=== PATIENT | male | born 1980 | race Two or more races ===

== ENCOUNTER 2020-04-12 08:21 | Day surgery (SDC) | payer OTHER ==
[2020-04-10 15:22] VITALS: BMI 34.4
[~2020-04-12 08:21] MED LIST: LACTATED RINGERS 1,000 ML IV SCH; LIDOCAINE 1% (10MG/ML) FOR IV START INTRADERMA PRN
[2020-04-12 08:45] VITALS: TEMP 97
[2020-04-12] MEDS ORDERED: PROPOFOL 10 MG/ML 20 ML VIAL IV ONE (09:32)
--- NOTE | 2020-04-12 09:44 | P.PCN ---
Date of Procedure: 04/12/20 Procedure(s) Performed: BRIEF HISTORY: Patient is a 31-year-old, pleasant, male, scheduled for an upper endoscopy as part of the chest pain for the last 2 months duration. He had cardiac catheterization done and basically a month ago that was negative. He denies any heartburn. No dysphagia or odynophagia. PROCEDURE PERFORMED: Esophagogastroduodenoscopy with biopsy. PREOPERATIVE DIAGNOSIS: Atypical chest pain. IV sedation per anesthesia. PROCEDURE: After informed consent was obtained, the patient was brought into the endoscopy unit. IV sedation was administered by Anesthesia under continuous monitoring. Initially the Olympus GIF-140 video endoscope was inserted into the mouth. Esophagus intubated without any difficulty. It was gradually advanced into the stomach and duodenum and carefully examined. The bulb and the second part of the duodenum appeared normal. The scope at this time was withdrawn to the stomach, adequately insufflated with air, and upon careful examination, mucosa of the antrum, had mild gastritis and biopsies were done from this area. body, cardia and the fundus appeared normal. The scope was then withdrawn into the esophagus. The GE junction was located at 40 cm from the incisors. There were linear erosions noted in the distal esophagus consistent with LA grade B reflux esophagitis. The rest of the esophagus appeared normal and the patient tolerated the procedure well. IMPRESSION: 1. Linear erosions in the distal esophagus consistent with LA grade B reflux esophagitis. 2. Mild antral gastritis. RECOMMENDATIONS: The findings of this examination were discussed with the patient as well as his family. He was advised to follow with the biopsy resul ts. He will be given a trial of Prilosec 40 mg daily for 8 weeks for possible GERD and will be seen in office..
[2020-04-12 10:07] VITALS: BP 122/76; PULSE 70; RESP 18
== END 2020-04-12 10:20 | disposition home or self-care (01) ==
LOC: ORWHC2ENDO 08:21
PROVIDERS: ATTEND Internal Medicine Gastroenterology
DX: K29.50 Unspecified chronic gastritis without bleeding (principal); K21.0 Gastro-esophageal reflux disease with esophagitis; K22.10 Ulcer of esophagus without bleeding; Z03.818 Encounter for observation for suspected exposure to other biological agents ruled out; F17.210 Nicotine dependence, cigarettes, uncomplicated; K50.90 Crohn's disease, unspecified, without complications; Z98.890 Other specified postprocedural states
CPT/HCPCS: 88305; 87635; 43239; J2704

== ENCOUNTER 2022-06-19 02:48 | Observation (INO) | payer BC, OTHER ==
--- NOTE | 2022-06-19 02:54 | ED ---
Abdominal Pain HPI - General Stated Complaint: Gallbladder issues Time Seen by Provider: 06/19/22 02:50 - History of Present Illness Initial Comments: This is a 42-year-old male who presents to the emergency department as a transfer from [facility] for acute cholecystitis. He began to have chest pain and upper abdominal pain around 5 PM yesterday. He originally had an x-ray of the chest, abdomen, and pelvis. This revealed concern for ileus versus small bowel obstruction. He then had a computed tomography scan of the abdomen and pelvis revealing gallstones and pericholecystic edema suggesting acute cholecystitis. Ultrasound was recommended, however he did not have one done at [place]. He was noted to have a mildly elevated white blood cell count of 11.0. He was given 1 g of ceftriaxone and 500 mg of Flagyl at approximately 12:15 AM. His pain has been well controlled with morphine. Denies any fevers, chills, sore throat, cough, dyspnea, palpitations, nausea, vomiting, diarrhea, back pain, or headaches. MD Complaint: abdominal pain Location: RUQ, epigastric - Related Data Home Medications Medication Instructions Recorded Confirmed No Known Home Medications 04/10/20 04/12/20 Allergies Allergy/AdvReac Type Severity Reaction Status Date / Time No Known Allergies Allergy Verified 06/19/22 02:55 Review of Systems ROS Statement: Those systems with pertinent positive or pertinent negative responses have been documented in the HPI. ROS Other: All systems not noted in ROS Statement are negative. Past Medical History Additional Past Medical History / Comment(s): chest pain- recent heart cath neg, crohns disease, heartburn, History of Any Multi-Drug Resistant Organisms: MRSA Date of last positivie culture/infection: 2018-not sure what month MDRO Source:: left index finger Past Surgical History: Heart Catheterization, Orthopedic Surgery Additional Past Surgical History / Comment(s): heart cath February 2020-negative, rt knee arthroscopy x 2, rt shoulder rotator cuff, Past Anesthesia/Blood Transfusion Reactions: No Reported Reaction Past Psychological History: No Psychological Hx Reported Past Alcohol Use History: None Reported Additional Past Alcohol Use History / Comment(s): smokes 1 PPD for 15 yrs Past Drug Use History: None Reported - Past Family History Mother Family Medical History: No Reported History General Exam Limitations: no limitations General appearance: alert, in no apparent distress Head exam: Present: atraumatic, normocephalic, normal inspection Respiratory exam: Present: normal lung sounds bilaterally. Absent: respiratory distress, wheezes, rales, rhonchi, stridor Cardiovascular Exam: Present: regular rate, normal rhythm, normal heart sounds. Absent: systolic murmur, diastolic murmur, rubs, gallop, clicks GI/Abdominal exam: Present: soft, tenderness (RUQ), normal bowel sounds. Absent: distended, guarding, rebound, rigid Neurological exam: Present: alert, oriented X3, CN II-XII intact Psychiatric exam: Present: normal affect, normal mood Skin exam: Present: warm, dry, intact, normal color. Absent: rash Course Vital Signs 06/19/22 02:49 Temperature 97.5 F L Pulse Rate 64 Respiratory 18 Rate Blood Pressure 117/76 O2 Sat by Pulse 94 L Oximetry Medical Decision Making - Medical Decision Making This is a 42-year-old male who presents to the emergency department for acute cholecystitis. Patient started on IV fluids. He'll be admitted to medicine with general surgery consult for cholecystectomy later today. Will start IV Zosyn around 6 AM and continue every 8 hours. This case was discussed in detail with the attending ED physician. Presentation, findings, and treatment plan discussed in detail as well. - Radiology Data Radiology results: report reviewed, image reviewed Disposition Clinical Impression: Acute cholecystitis Disposition: ADMITTED IP TO THIS [facility] Referrals: Nonstaff,Physician [REFERRING] - 1-2 days
[2022-06-19] MEDS ORDERED: SODIUM CHLORIDE 0.9% 1,000 ML IV STA (03:10)
[2022-06-19] MEDS ORDERED: PIPERACILLIN-TAZOBACTAM 3.375 GM in SODIUM CHLORIDE 0.9% 100 ML IVPB ONE (04:15)
[2022-06-19] MEDS ORDERED: NALOXONE 0.4 MG/ML 1 ML VIAL IV PRN (04:27)
[2022-06-19] MEDS ORDERED: HYDROmorphone 1 MG/ML 1 ML SYRINGE IVP PRN (04:27)
[2022-06-19] MEDS ORDERED: ONDANSETRON 4 MG/2 ML VIAL IVP PRN (04:27)
[2022-06-19] MEDS ORDERED: ACETAMINOPHEN TAB 325 MG TAB PO PRN (04:27)
[2022-06-19] MEDS: SODIUM CHLORIDE 0.9% 1,000 ML IV SCH ×3 (06:26→19:52)
[2022-06-19] MEDS: PIPERACILLIN-TAZOBACTAM 3.375 GM in SODIUM CHLORIDE 0.9% 100 ML IVPB SCH ×3 (08:27→23:05)
[2022-06-19] MEDS: HYDROmorphone 0.5 MG/0.5 ML SYRINGE IVP PRN ×2 (08:28→18:36)
[2022-06-19] MEDS: PANTOPRAZOLE 40 MG/10 ML VIAL IVP SCH ×2 (08:56→19:47)
[2022-06-19] MEDS ORDERED: INDOCYANINE GREEN 25 MG VIAL IV STA (09:47)
--- NOTE | 2022-06-19 09:47 | P.GSCN ---
History of Present Illness Consult date: 06/19/22 History of present illness: REASON FOR CONSULTATION: Acute cholecystitis HISTORY OF PRESENT ILLNESS: The patient is a 42 year old male who was transferred from outside institution with right upper quadrant abdominal pain less than 24 hrs ago. His abdominal pain started after eating chicken taco yesterday. He has Crohn's disease and is noncompliant with medical treatment. He reports past history of bowel obstructions. Patient reports his Crohn's medications caused worsening symptoms. He reports reflux disease with pizza and tomato-based foods. He takes Pepcid as needed. His mother is at bedside also confirms strong family history of gallbladder disease. He had CT of the abdomen and pelvis done at outside institution demonstrating features of acute cho lecystitis. Patient was transferred to this institution for cholecystectomy. Since admission his pain improved from last night. PAST MEDICAL HISTORY: See list and reviewed PAST SURGICAL HISTORY: See list and reviewed MEDICATIONS: See list and reviewed ALLERGIES: See list and reviewed SOCIAL HISTORY: See list and reviewed FAMILY HISTORY: See list and reviewed REVIEW OF ORGAN SYSTEMS: CONSTITUTIONAL: No fevers or chills. No recent weight loss. Has obesity, BMI 34.1. EYES: Denies any trouble with vision. No glasses. HEENT: No difficulties with hearing. No nosebleeds. No difficulty swallowing. RESPIRATORY: Denies pneumonia. Denies any troubles with breathing or dyspnea on exertion. CARDIOVASCULAR: History of cardiac catheterization negative. GASTROINTESTINAL: Has gastroesophageal reflux disease and Crohn's disease GENITOURINARY: Denies any blood in urine or increased urinary frequency. NEUROLOGICAL: Denies any numbness or tingling along the distal extremities. No seizure disorders or headaches. MUSCULOSKELETAL: Has back pain, stiffness or joint arthritis. SKIN: No current skin cancer. No rash. Has MRSA. PSYCHIATRIC: Denies current depression or suicidal thoughts. ENDOCRINE: Denies current thyroid disorders. Denies any blood sugar glucose intolerance. HEME/LYMPHATIC: Denies any lumps and bumps around the neck. No recent deep venous thrombosis. History of MRSA. ALLERGY/IMMUNOLOGY: No immunoglobulin therapy. No immune deficiencies. BREAST: Denies current breast lumps, pain or nipple discharge. PHYSICAL EXAM: VITALS: Reviewed CONSTITUTIONAL: Well developed and in no acute distress. EYES: Conjuctivae without sclera icterus. Extraocular movements grossly intact. HEAD, EARS, NOSE, THROAT: Moist buccal mucosa. Head is atraumatic, normocephalic. Hears conversational speech. No nasal drainage. NECK: Supple. No JV distention. No thyroidomegaly. RESPIRATORY: Non-labored respirations and equal bilateral excursions. No gross wheezes. CARDIOVASCULAR: Palpable 2+ radial pulses. ABDOMEN: Tender right upper quadrant abdominal pain. No peritonitis. LYMPH: No neck lymphadenopathy. MUSCULOSKELETAL: No clubbing, cyanosis. SKIN: Warm and well perfused with good skin turgor. NEUROLOGIC: Cranial nerves II through XII grossly intact. No focal or lateralizing signs. PSYCH: Appropriate affect. Alert and oriented to person, place and time. Displays appropriate insight. CLINCAL LABS: Reviewed. WBC normal. LFTs normal. RECORDS: Upper endoscopy from 2019 reviewed demonstrating gastroesophageal reflux disease with erosive esophagitis ASSESSMENT: 1. Acute cholecystitis 2. Right upper quadrant abdominal pain 3. Crohn's disease, noncompliant 4. Gastroesophageal reflux disease 5. Obesity due to excess calories, BMI 34.1. PLAN: 1. Recommend robotic cholecystectomy described. 2. Repeat CBC and CMP 3. Patient is elevated risk due to obesity and Crohn's disease Thank you for this kind consultation. Past Medical History Additional Past Medical History / Comment(s): chest pain- recent heart cath neg, crohns disease, heartburn, History of Any Multi-Drug Resistant Organisms: MRSA Year Discovered:: 2018-not sure what month MDRO Source:: left index finger Past Surgical History: Heart Catheterization, Orthopedic Surgery Additional Past Surgical History / Comment(s): heart cath February 2020-negative, rt knee arthroscopy x 2, rt shoulder rotator cuff, Past Anesthesia/Blood Transfusion Reactions: No Reported Reaction Past Psychological History: No Psychological Hx Reported Smoking Status: Former smoker Past Alcohol Use History: None Reported Additional Past Alcohol Use History / Comment(s): smokes 1 PPD for 15 yrs Past Drug Use History: None Reported - Past Family History Mother Family Medical History: No Reported History Medications and Allergies Home Medications Medication Instructions Recorded Confirmed Type Acetaminophen Tab [Tylenol] 1,000 mg PO Q6HR PRN 06/19/22 06/19/22 History Ibuprofen [Motrin] 600 mg PO Q8HR PRN #30 tab 06/19/22 Rx Omeprazole [PriLOSEC] 40 mg PO DAILY #14 cap 06/19/22 Rx Simethicone [Gas-X] 125 mg PO AC-TID PRN #20 capsule 06/19/22 Rx Allergies Allergy/AdvReac Type Severity Reaction Status Date / Time No Known Allergies Allergy Verified 06/19/22 08:00 Surgical - Exam Vital Signs Temp Pulse Resp BP Pulse Ox 97.5 F L 64 18 117/76 94 L 06/19/22 02:49 06/19/22 02:49 06/19/22 02:49 06/19/22 02:49 06/19/22 02:49 Results - Labs 06/20/22 03:29 06/20/22 03:29
[2022-06-19] MEDS ORDERED: HEPARIN SODIUM,PORCINE/PF 5,000 UNIT/0.5 ML SYRINGE SQ PRN (09:49)
[2022-06-19 10:53] LABS: Basophils # (A) 0.1 k/uL (0-0.2); Basophils % (A) 1 %; Eosinophils # (A) 0.8 k/uL (0-0.7); Eosinophils % (A) 8 %; HCT 45.4 % (39.0-53.0); Lymphocytes # (A) 1.1 k/uL (1.0-4.8); Lymphocytes % (A) 12 %; MCH 29.8 pg (25.0-35.0); MCHC 32.9 g/dL (31.0-37.0); MCV 90.6 fL (80.0-100.0); Mean Platelet Volume 7.6; Monocytes # (A) 0.7 k/uL (0-1.0); Monocytes % (A) 7 %; Neutrophils # (A) 6.5 k/uL (1.3-7.7); Neutrophils % (A) 70 %; Platelet Count 299 k/uL (150-450); RBC 5.02 m/uL (4.30-5.90); RDW 12.3 % (11.5-15.5); WBC 9.3 k/uL (3.8-10.6)
[2022-06-19 11:00] LABS: Prothrombin Time 10.4 sec (9.0-12.0)
[2022-06-19 11:06] LABS: ALT 31 U/L (4-49); AST 22 U/L (17-59); African American GFR (CKD) >90 (>60 ml/min/1.73 sqM); Albumin 4.3 g/dL (3.5-5.0); Albumin/Globulin Ratio 1.6; Alkaline Phosphatase 97 U/L (38-126); Anion Gap 7 mmol/L; Blood Urea Nitrogen 12 mg/dL (9-20); Calcium 8.7 mg/dL (8.4-10.2); Carbon Dioxide 27 mmol/L (22-30); Chloride 104 mmol/L (98-107); Globulin 2.7 g/dL; Glucose 91 mg/dL (74-99); Non-African American GFR(CKD) >90 (>60 ml/min/1.73 sqM); Potassium 4.4 mmol/L (3.5-5.1); Sodium 138 mmol/L (137-145); Total Bilirubin 0.7 mg/dL (0.2-1.3)
--- NOTE | 2022-06-19 11:32 | P.HPIM ---
History of Present Illness H&P Date: 06/19/22 History of Presenting Illness: Patient is a very pleasant 42-year-old male with a past medical history of GERD and Crohn's disease. He presented to the emergency department as a transfer from [facility] secondary to findings of acute cholecystitis. Patient initially presented to the emergency department for reports of epigastric pain beginning around 5 PM yesterday. Patient underwent x-rays of chest, abdomen, and pelvis which were reported to be concerning for versus small bowel obstruction and a CT abdomen was completed. CT abdomen revealed gallstones and pericholecystic edema concerning for acute cholecystitis. Patient was given Rocephin 1 g along with 500 mg of Flagyl and transferred to our facility for evaluation by General surgery. Patient underwent full evaluation in the emergency department. CBC, coags, and CMP were unremarkable. Patient was started on IV antibiotics Zosyn and admitted under our services with consultation to general surgery. Patient was seen and fully evaluated at the bedside. Patient reports he has a deep aching pain to right upper and epigastric region of abdomen. Patient denies increased pain with palpation and denies experiencing any nausea, vomiting, hematemesis, constipation, diarrhea, melena, or hematochezia. Patient also denies any recent fevers, chills, diaphoresis, chest pain, palpitations, or shortness of breath. Patient does report a history of Crohn's disease but denies having any abdominal surgeries or complications. Review of systems: Pertinent positives and negatives as discussed in HPI, a complete review of systems was performed and all other systems are negative. Physical exam: Vital signs reviewed and stable. General: Nontoxic, no distress and appears stated age. Derm: Skin warm and dry, normal coloration for ethnicity. Head: Atraumatic, normocephalic and symmetric. Eyes: EOMs intact, no lid lag, and anicteric sclera Mouth: no lip lesions, mucus membranes moist Cardiovascular: regular rate and rhythm with normal S1S2, no murmur, positive posterior tibial pulses bilaterally, and cap refill < 2 seconds. Lungs: Respirations even, regular, and unlabored on room air. Lungs CTA bilaterally, no rhonchi, no rales, no wheezing, and no accessory muscle usage. Abdominal: soft, nontender to palpation, no guarding, no appreciable organomegaly Ext: ROM intact. No gross muscle atrophy, no edema, no contractures Neuro: Speech clear, face symmetrical and CN II-XII grossly intact with no noted focal neuro deficits Psych: Alert and oriented to person, place, time, and situation. Appropriate and pleasant affect. Assessment and Plan of Care: Acute cholecystitis Abdominal pain Ileus History of GERD History of Crohn's disease -Consult to Gen. surgery -NPO pending scheduled robotic cholecystectomy -Continuation of IV antibiotic Zosyn -Symptomatic care and pain management with Dilaudid as needed for pain and Zofran as needed for nausea or vomiting. -PPI: Protonix 40 mg IVP twice daily -Continued IV fluid hydration with 0.9% normal saline. The patient is admitted with an anticipated less than 2 midnight stay for evaluation of acute cholecystitis CODE STATUS: Full code DVT prophylaxis: Heparin Discussed with: Patient, patient's family at bedside, and RN Anticipated discharge date: Tomorrow morning Anticipated discharge place: Home A total of 43 minutes was spent on the care of this complex patient more than 50% of the time was spent in counseling and care coordination. Past Medical History Additional Past Medical History / Comment(s): chest pain- recent heart cath neg, crohns disease, heartburn, History of Any Multi-Drug Resistant Organisms: MRSA Date of last positivie culture/infection: 2018-not sure what month MDRO Source:: left index finger Past Surgical History: Heart Catheterization, Orthopedic Surgery Additional Past Surgical History / Comment(s): heart cath February 2020-negative, rt knee arthroscopy x 2, rt shoulder rotator cuff, Past Anesthesia/Blood Transfusion Reactions: No Reported Reaction Past Psychological History: No Psychological Hx Reported Smoking Status: Former smoker Past Alcohol Use History: None Reported Additional Past Alcohol Use History / Comment(s): smokes 1 PPD for 15 yrs Past Drug Use History: None Reported - Past Family History Mother Family Medical History: No Reported History Medications and Allergies Home Medications Medication Instructions Recorded Confirmed Type Acetaminophen Tab [Tylenol Tab] 1,000 mg PO Q6HR PRN 06/19/22 06/19/22 History Famotidine [Pepcid AC] 10 mg PO DAILY PRN 06/19/22 06/19/22 History Allergies Allergy/AdvReac Type Severity Reaction Status Date / Time No Known Allergies Allergy Verified 06/19/22 08:00 Physical Exam Vitals: Vital Signs Temp Pulse Pulse Resp BP BP Pulse Ox 06/19/22 07:00 97.6 F 64 18 128/74 96 06/19/22 05:28 97.5 F L 57 L 18 129/82 94 L 06/19/22 02:49 97.5 F L 64 18 117/76 94 L Intake and Output 06/18/22 06/19/22 06/19/22 22:59 06:59 14:59 Other: Weight 107.955 kg Results CBC & Chem 7: 06/19/22 10:25 06/19/22 10:25 Thrombosis Risk Factor Assmnt - Choose All That Apply Each Factor Represents 1 point: Age 41-60 years, Obesity (BMI >25) Thrombosis Risk Factor Assessment Total Risk Factor Score: 2 Thrombosis Risk Factor Assessment Level: Low Risk
[2022-06-19] MEDS ORDERED: LACTATED RINGERS 1,000 ML IV ONE ×2 (14:22→16:21)
[2022-06-19] MEDS ORDERED: HYDROmorphone (PF) 1 MG/ML ONE (15:30)
[2022-06-19] MEDS ORDERED: KETOROLAC 15 MG/ML 1 ML VIAL ONE (15:30)
[2022-06-19] MEDS ORDERED: ePHEDrine 50 MG/ML 1 ML VIAL ONE (15:30)
[2022-06-19] MEDS ORDERED: ROCURONIUM 10 MG/ML (5 ML VIAL) IV ONE (15:30)
[2022-06-19] MEDS ORDERED: INDOCYANINE GREEN 25 MG VIAL IV ONE (15:30)
[2022-06-19] MEDS ORDERED: NEOSTIGMINE 1 MG/ML 10 ML VIAL ONE (15:30)
[2022-06-19] MEDS ORDERED: MIDAZOLAM 2 MG/2 ML VIAL ONE (15:30)
[2022-06-19] MEDS ORDERED: GLYCOPYRROLATE 0.2 MG/ML 2 ML VIAL ONE (15:30)
[2022-06-19] MEDS ORDERED: SUCCINYLCHOLINE CHLORIDE 200 MG/10 ML VIAL IV ONE (15:30)
[2022-06-19] MEDS ORDERED: fentaNYL (PF) 50 MCG/ML 2 ML AMP ONE (15:30)
[2022-06-19] MEDS ORDERED: PROPOFOL 10 MG/ML 20 ML VIAL IV ONE (15:30)
[2022-06-19] MEDS ORDERED: LIDOCAINE 2% INJ 20 MG/ML (2 ML VIAL) ONE (15:30)
[2022-06-19] MEDS ORDERED: BUPIVACAIN-EPI 0.25%-1:200,000 30 ML VIAL SQ ONE ×2 (15:48)
[2022-06-19] MEDS ORDERED: ACETAMINOPHEN IV (For NPO) 1,000 MG in EMPTY BAG 1 BAG IVPB ONE (17:29)
[2022-06-19] MEDS ORDERED: METOCLOPRAMIDE 5 MG/ML 2 ML VIAL IVP PRN (17:29)
--- NOTE | 2022-06-19 17:37 | P.OP ---
Date of Procedure: 06/19/22 Description of Procedure: SURGEON: SCOTTIE GRIMALDO MD PREOPERATIVE DIAGNOSES: 1. Acute cholecystitis 2. Gastroesophageal reflux disease 3. Crohn's disease with history of bowel obstructions 4. Obesity due to excess calories, BMI 34.1 5. Family history gallbladder disease POSTOPERATIVE DIAGNOSES: 1. Acute cholecystitis 2. Obesity due to excess calories, BMI 34.1 3. Hepatomegaly fatty liver disease 4. Gastroesophageal reflux disease 5. Crohn's disease with history of bowel obstructions 6. Family history gallbladder disease OPERATION: 1. Robotic-assisted da Milena Xi laparoscopic lysis of adhesions over 50% of the case 2. Robotic-assisted da Milena Xi laparoscopic cholecystectomy, multiport with FIREFLY ESTIMATED BLOOD LOSS: 5 mL. SPECIMENS REMOVED: Gallbladder. COMPLICATIONS: None. OPERATIVE FINDINGS: 1. Acute on chronic cholecystitis with moderate pericholecystic adhesions 2. Indocyanine green drain confirms acute cholecystitis with lack of contrast in gallbladder 3. Hepatomegaly and fatty liver disease 4. Moderate to severe pericholecystic adhesions requiring lysis of adhesions over 50% of the case INDICATIONS: The patient is a 42 year-old male who presents as a transfer from outside institution for acute cholecystitis. Surgical intervention with cholecystectomy was described. Robotic assisted laparoscopic approach was described. Benefits and risks of the procedure including but not limited to bleeding, infection, injury to the biliary tree was reviewed. Informed consent was obtained. DESCRIPTION OF PROCEDURE: Patient was brought to the operating room, placed in supine position. After general induction, the abdomen had been prepped and draped in standard sterile fashion. The robotic da Milena XI system was primed. After a timeout protocol was performed, the patient had been prepped and draped in standard sterile fashion. The patient was injected with indocyanine green. A 5 mm 0 degrees laparoscopic trocar entry was performed along the left upper quadrant. The abdomen insufflated to 15 mmHg pressure which was tolerated well. Diagnostic laparoscopy demonstrated no injury to bowel viscera or mesentery. The liver surface was unremarkable. A moderately distended gallbladder was identified adding complexity to the case. Next, two 8 mm robotic ports were placed along the right upper abdomen. The camera 8-mm port was maintained along the epigastrium. Another 8 mm port was placed along the left upper abdominal wall after exchanging the 5 mm port. Please note that the ports were placed at least 10 to 15 cm away from the target anatomy of the gallbladder. The robot was docked along the left lateral abdomen. The patient was repositioned in reverse Trendelenburg position with the right side up. Using a grasper for arm 3, a grasper for arm 4, including hook cautery for arm 1, the robotic system was docked and primed as described. Instruments were interchanged by the customer support assistant including hook cautery, Bovie cautery and clip appliers. I had sat at the console. The gallbladder was reflected towards the dome of the liver. Moderate pericholecystic adhesions were identified omentum to the fundus and body of the gallbladder. Lysis of adhesions with hook cautery was performed including blunt dissection requiring over 50% of the case. Edema was found along the cystic triangle including infundibulum. Initial dissection was performed on the gallbladder infundibulum using indocyanine green to illuminate the cystic duct and common bile duct. Due to moderate distention of the infundibulum, dome down technique was performed removing the gallbladder from the hepatic fossa starting from the fundus towards the infundibulum. Using a sponge, the liver was reflected towards the diaphragm and starting at the gallbladder fundus, hook cautery was used to find the avascular plane between the liver and the gallbladder. As the gallbladder was dissected from the hepatic fossa, hemostasis was checked using vessel sealer along the posterior gallbladder. Next, indocyanine green was used to confirm the common bile duct as well as cystic duct. The cystic duct was short and dissection was performed at the junction of the cystic duct and infundibulum. The entire gallbladder was without contrast consistent with acute cholecystitis. The infundibulum was retracted laterally to expose the cystic duct away from the common bile duct. The cystic duct was dissected free from its surrounding tissue. FIREFLY was used to identify the cystic structures. A critical view of safety was obtained. Large PLASTIC clips were used throughout the entire case. Using a clip pl sql programmer, 2 clips were placed at the junction of the infundibulum and cystic duct. The gallbladder was divided distal to the clips leaving 2 clips at the hepatic fossa. No contamination occurred during the case. Hemostasis was checked and found to be adequate. The robot was undocked. I re-scrubbed into the case. A 10 mm Endo Catch bag was used to remove the gallbladder in total via the left upper quadrant incision after widening the incision. The specimen was removed from the abdominal cavity with spillage in the Endo Catch bag. John Harrison and 0 Vicryl was used to close the fascial defect of the left upper quadrant. All pneumoperitoneum instruments were evacuated from the abdominal cavity. The incisions were cleansed using dilute hydrogen peroxide. The incisions were reapproximated using 4-0 Monocryl in an interrupted subcuticular fashion. Please note along the trocar sites, local anesthetic was placed as a field block prior to insertion of all instruments. Liquid glue was applied to the skin. Optifoam dressing was placed along the gallbladder extraction site. At the end of the procedure needle, sponge, and instrument count had been verified correct by the nursing surgical services director. The patient was transferred to postanesthesia care unit in stable condition. Intraoperative films were shared with the patient's family.
[2022-06-19] MEDS: KETOROLAC 15 MG/ML 1 ML VIAL IVP SCH ×2 (18:14→23:04)
[2022-06-19] MEDS: SIMETHICONE 40 MG/0.6 ML DROPS 2,000 MG/30 ML BOTTLE PO SCH ×2 (18:35→19:50)
[2022-06-19] MEDS ORDERED: MORPHINE SULFATE 4 MG/ML SYRINGE IVP PRN (19:21)
[2022-06-19] MEDS: MORPHINE SULFATE 4 MG/ML SYRINGE IVP PRN ×2 (19:45→23:03)
[2022-06-19] MEDS: HEPARIN SODIUM,PORCINE/PF 5,000 UNIT/0.5 ML SYRINGE SQ SCH (23:05)
[2022-06-20] MEDS: MORPHINE SULFATE 4 MG/ML SYRINGE IVP PRN ×4 (02:25→11:50)
[2022-06-20] MEDS: KETOROLAC 15 MG/ML 1 ML VIAL IVP SCH ×3 (05:22→18:15)
[2022-06-20] MEDS: SODIUM CHLORIDE 0.9% 1,000 ML IV SCH ×2 (05:24→08:23)
[2022-06-20] MEDS: PANTOPRAZOLE 40 MG/10 ML VIAL IVP SCH ×2 (08:24→21:05)
[2022-06-20] MEDS: PIPERACILLIN-TAZOBACTAM 3.375 GM in SODIUM CHLORIDE 0.9% 100 ML IVPB SCH ×2 (08:26→16:05)
[2022-06-20] MEDS: HEPARIN SODIUM,PORCINE/PF 5,000 UNIT/0.5 ML SYRINGE SQ SCH ×2 (08:26→16:05)
--- NOTE | 2022-06-20 08:34 | P.PN ---
Progress Note - Text Progress Note Date: 06/20/22 Identified by nursing of patient's moderate postoperative pain at the left upper quadrant incision. He denies any radical caution abdominal pain. Recommended ice and abdominal binder. Left upper quadrant pain expected following surgery. Patient requested morphine. Family and patient reports a lot of does not help with this pain. Morphine ordered for pain management.
[2022-06-20] MEDS: SIMETHICONE 40 MG/0.6 ML DROPS 2,000 MG/30 ML BOTTLE PO SCH ×4 (08:43→21:05)
[2022-06-20 09:19] LABS: Basophils # (A) 0.04 X 10*3/uL (0.00-0.10); Basophils % (A) 0.5 %; Eosinophils # (A) 0.25 X 10*3/uL (0.04-0.35); HCT 39.6 % (39.6-50.0); HGB 12.8 g/dL (13.0-17.0); Immature Grans, Automated 0.4 %; Lymphocytes # (A) 0.98 X 10*3/uL (0.90-5.00); Lymphocytes % (A) 11.6 %; MCH 29.5 pg (27.0-32.0); MCHC 32.3 g/dL (32.0-37.0); MCV 91.2 fL (80.0-97.0); Mean Platelet Volume 10.1 fL (9.5-12.2); Monocytes # (A) 0.71 X 10*3/uL (0.20-1.00); Monocytes % (A) 8.4 %; NRBC Per 100 WBC 0 /100 WBCS (0.0-0.0); Neutrophils # (A) 6.45 X 10*3/uL (1.80-7.70); Neutrophils % (A) 76.1 %; Platelet Count 260 X 10*3/uL (140-440); RBC 4.34 X 10*6/uL (4.40-5.60); RDW 12.2 % (11.5-14.5); WBC 8.46 X 10*3/uL (4.50-10.00)
[2022-06-20 10:31] LABS: African American GFR (CKD) 122.5 (60.0-200.0); Albumin 3.8 g/dL (3.8-4.9); Albumin/Globulin Ratio 1.9 (1.60-3.17); BUN/Creat Ratio 10.22 Ratio (12.00-20.00); Blood Urea Nitrogen 9.2 mg/dL (9.0-27.0); Calcium 8.4 mg/dL (8.7-10.3); Non-African American GFR(CKD) 105.7 (60.0-200.0); Total Bilirubin 0.4 mg/dL (0.30-1.20); Total Protein 5.8 g/dL (6.2-8.2)
--- NOTE | 2022-06-20 11:37 | P.PN ---
Subjective Progress Note Date: 06/20/22 CHIEF COMPLAINT: Acute cholecystitis HISTORY OF PRESENT ILLNESS: The patient is a 42 year old male is status post cholecystectomy for acute cholecystitis. Yesterday, patient reevaluated postoperatively due to post incisional pain as to be expected. Patient reports pain improved from yesterday however requiring morphine 6 mg every 3 hours. He tolerated low fiber diet this morning. Patient reports that he does not follow- up for his Crohn's disease and manages his Crohn's himself. Denies flatus or bowel movement. REVIEW OF ORGAN SYSTEMS: CONSTITUTIONAL: No fevers or chills. No recent weight loss. Has obesity, BMI 34.1. CARDIOVASCULAR: History of cardiac catheterization negative. GASTROINTESTINAL: Has gastroesophageal reflux disease and Crohn's disease PHYSICAL EXAM: VITALS: Reviewed CONSTITUTIONAL: Well developed and in no acute distress. EYES: Conjuctivae without sclera icterus. Extraocular movements grossly intact. HEAD, EARS, NOSE, THROAT: Moist buccal mucosa. Head is atraumatic, normocephalic. Hears conversational speech. No nasal drainage. RESPIRATORY: Non-labored respirations and equal bilateral excursions. No gross wheezes. CARDIOVASCULAR: Palpable 2+ radial pulses. ABDOMEN: Dressing intact. MUSCULOSKELETAL: No clubbing, cyanosis. SKIN: Warm and well perfused with good skin turgor. NEUROLOGIC: Cranial nerves II through XII grossly intact. No focal or lat eralizing signs. PSYCH: Appropriate affect. Alert and oriented to person, place and time. Displays appropriate insight. CLINCAL LABS: Reviewed. WBC normal. LFTs normal ASSESSMENT: 1. Acute cholecystitis 2. Right upper quadrant abdominal pain 3. Crohn's disease, noncompliant 4. Gastroesophageal reflux disease 5. Obesity due to excess calories, BMI 34.1. PLAN: 1. Recommend continued observation for pain management. 2. Trial of lunch described with management without schedule morphine. 3. Otherwise, continue observation with disposition in 24 hours 4. Recommend ice and abdominal binder of appropriate size 5. Schedule nonnarcotic pain management with Neurontin, Tylenol, IV ibuprofen started Objective - Vital Signs Vital signs: Vital Signs Temp 97.8 F 06/20/22 07:00 Pulse 70 06/20/22 07:00 Resp 18 06/20/22 08:32 BP 117/74 06/20/22 07:00 Pulse Ox 95 06/20/22 07:00 FiO2 Intake & Output 06/19/22 06/20/22 06/20/22 18:59 06:59 18:59 Intake Total 1500 450 118 Output Total 5 Balance 1495 450 118 Intake: IV 1500 Oral 450 118 Output: Estimated Blood Loss 5 Other: Voiding Method Toilet Toilet # Voids 2 - Labs CBC & Chem 7: 06/20/22 03:29 06/20/22 03:29 Labs: Abnormal Lab Results - Last 24 Hours (Table) 06/20/22 06/20/22 Range/Units 03:29 03:29 RBC 4.34 L (4.40-5.60) X 10*6/uL Hgb 12.8 L (13.0-17.0) g/dL BUN/Creatinine Ratio 10.22 L (12.00-20.00) Ratio Glucose 146 H (70-110) mg/dL Calcium 8.4 L (8.7-10.3) mg/dL Total Protein 5.8 L (6.2-8.2) g/dL
[2022-06-20] MEDS: GABAPENTIN 300 MG CAP PO SCH ×3 (13:30→21:06)
[2022-06-20] MEDS: ACETAMINOPHEN TAB 500 MG TAB PO SCH ×2 (13:39→18:14)
--- NOTE | 2022-06-20 16:11 | P.PN ---
Subjective Progress Note Date: 06/20/22 Hospital Course: Patient is a very pleasant 42-year-old male with a past medical history of GERD and Crohn's disease. He presented to the emergency department as a transfer from [facility] secondary to findings of acute cholecystitis. Patient initially presented to the emergency department for reports of epigastric pain beginning around 5 PM on 06/18/22. Patient underwent x-rays of chest, abdomen, and pelvis which were reported to be concerning for versus small bowel obstruction and a CT abdomen was completed. CT abdomen revealed gallstones and pericholecystic edema concerning for acute cholecystitis. Patient was given Rocephin 1 g along with 500 mg of Flagyl and transferred to our facility for evaluation by General surgery. Patient underwent full evalua tion in the emergency department. CBC, coags, and CMP were unremarkable. Patient was started on IV antibiotics Zosyn and admitted under our services with consultation to general surgery. Pt underwent laparoscopic cholecystectomy 06/19/22. Physical exam: Pt continues to have uncontrolled pain status post laparoscopic cholecystectomy. He denies passing flatus or having a bowel movement. He is tolerating oral intake and denies any nausea or vomiting. Vital signs reviewed and stable. General: Nontoxic, no distress and appears stated age. Derm: Skin warm and dry, normal coloration for ethnicity. Head: Atraumatic, normocephalic and symmetric. Eyes: EOMs intact, no lid lag, and anicteric sclera Mouth: no lip lesions, mucus membranes moist Cardiovascular: regular rate and rhythm with normal S1S2, no murmur, positive posterior tibial pulses bilaterally, and cap refill < 2 seconds. Lungs: Respirations even, regular, and unlabored on room air. Lungs CTA bilaterally, no rhonchi, no rales, no wheezing, and no accessory muscle usage. Abdominal: soft, nontender to palpation, no guarding, no appreciable organomegaly Ext: ROM intact. No gross muscle atrophy, no edema, no contractures Neuro: Speech clear, face symmetrical and CN II-XII grossly intact with no noted focal neuro deficits Psych: Alert and oriented to person, place, time, and situation. Appropriate and pleasant affect. Assessment and Plan of Care: Acute cholecystitis status post laparoscopic cholecystectomy on 06/19/22 Abdominal pain Ileus History of GERD History of Crohn's disease Acute blood loss anemia, expected postsurgical finding -Gen. surgery following, patient is status post laparoscopic cholecystectomy on 06/19/22 -Low fat diet -Continuation of IV antibiotic Zosyn -Symptomatic care and pain management with Dilaudid as needed for pain and Zofran as needed for nausea or vomiting. -PPI: Protonix 40 mg IVP twice daily -Hemoglobin 12.8, presurgical hemoglobin was 15.0.. Hemoglobin is stable. CODE STATUS: Full code DVT prophylaxis: Heparin Discussed with: Patient, patient's family at bedside, and RN Anticipated discharge date: Tomorrow morning Anticipated discharge place: Home A total of 33 minutes was spent on the care of this complex patient more than 50% of the time was spent in counseling and care coordination. Objective - Vital Signs Vital signs: Vital Signs Temp 97.8 F 06/20/22 07:00 Pulse 70 06/20/22 07:00 Resp 18 06/20/22 07:00 BP 117/74 06/20/22 07:00 Pulse Ox 95 06/20/22 07:00 FiO2 Intake & Output 06/19/22 06/20/22 06/20/22 18:59 06:59 18:59 Intake Total 1500 450 Output Total 5 Balance 1495 450 Intake: IV 1500 Oral 450 Output: Estimated Blood Loss 5 Other: Voiding Method Toilet # Voids 2 - Labs CBC & Chem 7: 06/20/22 03:29 06/20/22 03:29 Labs: Abnormal Lab Results - Last 24 Hours (Table) 06/19/22 Range/Units 10:25 Eosinophils # 0.8 H (0-0.7) k/uL
[2022-06-20] MEDS ORDERED: DOCUSATE 100 MG CAP PO STA (20:03)
[2022-06-20] MEDS ORDERED: MORPHINE SULFATE 2 MG/ML SYRINGE IVP PRN (20:03)
[2022-06-21] MEDS: KETOROLAC 15 MG/ML 1 ML VIAL IVP SCH ×3 (01:27→11:33)
[2022-06-21] MEDS: PIPERACILLIN-TAZOBACTAM 3.375 GM in SODIUM CHLORIDE 0.9% 100 ML IVPB SCH ×2 (01:28→08:25)
[2022-06-21] MEDS: ACETAMINOPHEN TAB 500 MG TAB PO SCH ×3 (01:28→11:32)
[2022-06-21] MEDS: HEPARIN SODIUM,PORCINE/PF 5,000 UNIT/0.5 ML SYRINGE SQ SCH ×2 (01:29→08:26)
[2022-06-21 07:38] VITALS: BP 145/91; PULSE 68; RESP 18; TEMP 97.8
[2022-06-21] MEDS: SIMETHICONE 40 MG/0.6 ML DROPS 2,000 MG/30 ML BOTTLE PO SCH ×2 (08:27→11:34)
[2022-06-21] MEDS: PANTOPRAZOLE 40 MG/10 ML VIAL IVP SCH (08:29)
[2022-06-21] MEDS: GABAPENTIN 300 MG CAP PO SCH (08:30)
--- NOTE | 2022-06-21 12:46 | P.DS ---
Providers Date of admission: 06/19/22 04:37 Expected date of discharge: 06/21/22 Attending physician: Yeni Garcia MD Consults: 06/19/22 04:27 Consult Physician Urgent Consulting Provider: Juanita Jimenez Consult Reason/Comments: acute cholecystitis Do you want consulting provider notified?: Already Contacted Primary care physician: Stated None Hospital Course: Discharge Diagnosis: Acute cholecystitis status post laparoscopic cholecystectomy on 06/19/22, patient discharged home on postop day 2. He was instructed to follow low-fat diet for next 2-3 days then advance as tolerated, avoid lifting anything over 10 pounds for the next 2 weeks, instructed he may shower but no tub baths for 2 weeks. Abdominal pain, secondary to above Ileus, resolved History of GERD, continue PPI with omeprazole. History of Crohn's disease Acute blood loss anemia, expected postsurgical finding. Hemoglobin stable at 12.8. Hospital Course: Patient is a very pleasant 42-year-old male with a past medical history of GERD and Crohn's disease. He presented to the emergency department as a transfer from [facility] secondary to findings of acute cholecystitis. Patient initially presented to the emergency department for reports of epigastric pain beginning around 5 PM on 06/18/22. Patient underwent x-rays of chest, abdomen, and pelvis which were reported to be concerning for versus small bowel obstruction and a CT abdomen was completed. CT abdomen revealed gallstones and pericholecystic edema concerning for acute cholecystitis. Patient was given Rocephin 1 g along with 500 mg of Flagyl and transferred to our facility for evaluation by General surgery. Patient underwent full evaluation in the emergency department. CBC, coags, and CMP were unremarkable. Patient was started on IV antibiotics Zosyn and admitted under our services with consultation to general surgery. Pt underwent laparoscopic cholecystectomy 06/19/22. Postoperative day one patient had uncontrolled pain/discomfort and remained unable to pass flatus or have bowel movement. Patient was to remain hospitalized for pain management and monitoring of bowel function. Bowel sounds returned, Order was placed for docusate 1 dose. This resulted in successful bowel movements. Postoperative day 2 patient doing well. Tolerating oral intake without any episodes of nausea or vomiting. Patient continues to have mild postoperative pain/discomfort but is controlled. He reports no difficulties with urination and reports continuing to pass flatus with normal bowel function. Patient is medically stable for discharge at this time. Patient being given a 3 day supply of Sturdivant for breakthrough pain/discomfort not managed by Tylenol/Motrin. He was instructed to continue with Mylicon gas drops for gas pain/discomfort. Patient medically stable for discharge home at this time. General surgery recommending patient follow up outpatient next week in their office. Physical exam: Vital signs reviewed and stable. General: Nontoxic, no distress and appears stated age. Derm: Skin warm and dry, normal coloration for ethnicity. Head: Atraumatic, normocephalic and symmetric. Eyes: EOMs intact, no lid lag, and anicteric sclera Mouth: no lip lesions, mucus membranes moist Cardiovascular: regular rate and rhythm with normal S1S2, no murmur, positive posterior tibial pulses bilaterally, and cap refill < 2 seconds. Lungs: Respirations even, regular, and unlabored on room air. Lungs CTA bilaterally, no rhonchi, no rales, no wheezing, and no accessory muscle usage. Abdominal: soft, nontender to palpation, no guarding, no appreciable organomegaly. Laparoscopic incisions intact with no surrounding erythema, drainage, or bleeding noted. Ext: ROM intact. No gross muscle atrophy, no edema, no contractures Neuro: Speech clear, face symmetrical and CN II-XII grossly intact with no noted focal neuro deficits Psych: Alert and oriented to person, place, time, and situation. Appropriate and pleasant affect. A total of 35 minutes of time were spent preparing this complex discharge summary. Pt was discharged on 06/21/22 at 12:24 PM. I reviewed the documentation as provided by the LAURE above, who is the original author of this note. I agree with the documented assessment and plan, with the following changes: none Patient Condition at Discharge: Stable Plan - Discharge Summary Discharge Rx Participant: No New Discharge Prescriptions: New Omeprazole [PriLOSEC] 40 mg PO DAILY #14 cap HYDROcodone/APAP 7.5-325MG [Sturdivant 7.5-325] 1 tab PO Q4H PRN 3 Days #18 tab PRN Reason: Pain Simethicone [Gas-X] 125 mg PO AC-TID PRN #20 capsule PRN Reason: Pain Ibuprofen [Motrin] 600 mg PO Q8HR PRN #30 tab PRN Reason: Pain Continue Acetaminophen Tab [Tylenol] 1,000 mg PO Q6HR PRN PRN Reason: Pain Discontinued Famotidine [Pepcid AC] 10 mg PO DAILY PRN PRN Reason: Heartburn Discharge Medication List Acetaminophen Tab [Tylenol] 1,000 mg PO Q6HR PRN 06/19/22 [History] Ibuprofen [Motrin] 600 mg PO Q8HR PRN #30 tab 06/19/22 [Rx] Omeprazole [PriLOSEC] 40 mg PO DAILY #14 cap 06/19/22 [Rx] Simethicone [Gas-X] 125 mg PO AC-TID PRN #20 capsule 06/19/22 [Rx] HYDROcodone/APAP 7.5-325MG [Sturdivant 7.5-325] 1 tab PO Q4H PRN 3 Days #18 tab 06/21/22 [Rx] Follow up Appointment(s)/Referral(s): Juanita Jimenez MD [STAFF PHYSICIAN] - 06/23/22 (TELEHEALTH) Gary Wilson [STAFF PHYSICIAN] - 1 Week Patient Instructions/Handouts: *[facility] - Laparoscopic Cholecystectomy Discharge Instructions, *[facility] - Managing Your Pain After Surgery Without Opioids, How to Stop Smoking (DC), Low Fat Diet (DC) Activity/Diet/Wound Care/Special Instructions: Activity: As tolerated. Take breaks as needed. Diet: Recommend low-fat diet for the next 2-3 days then advance diet as tolerated. Special Instructions: Take all of your medications as directed and remember to keep all of your doctor's appointments and follow-up as needed. No lifting over 10 pounds for the next 2 weeks until Jul 03. May shower. No bath tub soaks for two weeks until Jul 03. Use Tylenol, simethicone and ibuprofen or Aleve scheduled for the next 24-48 hours for best pain relief. Use ice along incisions for today to prevent swelling. Remember to splint!! Thank you for allowing us to participate in your care, it was truly a pleasure having you for our patient!!! Discharge Disposition: HOME SELF-CARE
--- NOTE | 2022-06-21 13:21 | P.PN ---
Subjective Progress Note Date: 06/21/22 CHIEF COMPLAINT: Acute cholecystitis HISTORY OF PRESENT ILLNESS: The patient is a 42 year old male is status post cholecystectomy for acute cholecystitis. His pain is well-controlled. He is tolerating low-fat diet. REVIEW OF ORGAN SYSTEMS: CONSTITUTIONAL: No fevers or chills. No recent weight loss. Has obesity, BMI 34.1. CARDIOVASCULAR: History of cardiac catheterization negative. GASTROINTESTINAL: Has gastroesophageal reflux disease and Crohn's disease PHYSICAL EXAM: VITALS: Reviewed CONSTITUTIONAL: Well developed and in no acute distress. EYES: Conjuctivae without sclera icterus. Extraocular movements grossly intact. HEAD, EARS, NOSE, THROAT: Moist buccal mucosa. Head is atraumatic, normocephalic. Hears conversational speech. No nasal drainage. RESPIRATORY: Non-labored respirations and equal bilateral excursions. No gross wheezes. CARDIOVASCULAR: Palpable 2+ radial pulses. ABDOMEN: Dressing intact. No peritonitis. MUSCULOSKELETAL: No clubbing, cyanosis. SKIN: Warm and well perfused with good skin turgor. NEUROLOGIC: Cranial nerves II through XII grossly intact. No focal or lateralizing signs. PSYCH: Appropriate affect. Alert and oriented to person, place and time. Displays appropriate insight. CLINCAL LABS: Reviewed. No new labs. ASSESSMENT: 1. Acute cholecystitis 2. Right upper quadrant abdominal pain 3. Crohn's disease, noncompliant 4. Gastroesophageal reflux disease 5. Obesity due to excess calories, BMI 34.1. PLAN: 1. Stable for discharge from surgical standpoint. 2. Diet as tolerated Objective - Vital Signs Vital signs: Vital Signs Temp 97.8 F 06/21/22 07:00 Pulse 68 06/21/22 07:00 Resp 18 06/21/22 08:27 BP 145/91 06/21/22 07:00 Pulse Ox 96 06/21/22 07:00 FiO2 Intake & Output 06/20/22 06/21/22 06/21/22 18:59 06:59 18:59 Intake Total 618 450 Balance 618 450 Intake: Oral 618 450 Other: Voiding Method Toilet Toilet Toilet # Voids 4 2 - Labs CBC & Chem 7: 06/20/22 03:29 06/20/22 03:29
== END 2022-06-21 12:54 | disposition home or self-care (01) ==
LOC: EC 02:48 → 6NMEDSUR 04:37
PROVIDERS: ADMIT Internal Medicine; ATTEND Internal Medicine
DX: K80.12 Calculus of gallbladder with acute and chronic cholecystitis without obstruction (principal); K76.0 Fatty (change of) liver, not elsewhere classified; K82.8 Other specified diseases of gallbladder; K50.90 Crohn's disease, unspecified, without complications; K56.7 Ileus, unspecified; D62 Acute posthemorrhagic anemia; F17.200 Nicotine dependence, unspecified, uncomplicated; K21.9 Gastro-esophageal reflux disease without esophagitis; E66.9 Obesity, unspecified; Z68.34 Body mass index [BMI] 34.0-34.9, adult; Z91.19 Patient's noncompliance with other medical treatment and regimen; Z86.14 Personal history of Methicillin resistant Staphylococcus aureus infection
CPT/HCPCS: 47562; S2900; 80053; 85025; 85610; 88304; 96365; 96372; 96375; 96376; 99285